=== PATIENT | female | born 1950 | race Caucasian/White ===

== ENCOUNTER 2017-02-24 20:16 | Emergency (ER) | payer MEDICARE, MEDICAID ==
[2012-08-01 14:20] VITALS: BMI 32.2
== END 2017-02-24 23:26 | disposition home or self-care (01) ==
LOC: D.ER 20:16
DX: M25.561 Pain in right knee (principal); W01.0XXA Fall on same level from slipping, tripping and stumbling without subsequent striking against object, initial encounter; Y93.89 Activity, other specified; Y92.019 Unspecified place in single-family (private) house as the place of occurrence of the external cause; M51.36 Other intervertebral disc degeneration, lumbar region; E11.9 Type 2 diabetes mellitus without complications; K21.9 Gastro-esophageal reflux disease without esophagitis

== ENCOUNTER 2017-05-30 22:10 | Emergency (ER) | payer MEDICARE, MEDICAID ==
[2012-08-01 14:20] VITALS: BMI 32.2
== END 2017-05-31 00:55 | disposition home or self-care (01) ==
LOC: D.ER 22:10
DX: S61.452A Open bite of left hand, initial encounter (principal); S61.451A Open bite of right hand, initial encounter; W55.01XA Bitten by cat, initial encounter; Y93.89 Activity, other specified; Y92.029 Unspecified place in mobile home as the place of occurrence of the external cause; S60.512A Abrasion of left hand, initial encounter; S60.511A Abrasion of right hand, initial encounter; K21.9 Gastro-esophageal reflux disease without esophagitis

== ENCOUNTER → 2018-04-14 15:28 | Outpatient (CLI) | payer MEDICARE, MEDICAID ==
[2012-08-01 14:20] VITALS: BMI 32.2
== END | disposition home or self-care (01) ==
LOC: D.US 10:30
DX: R22.32 Localized swelling, mass and lump, left upper limb (principal)